=== PATIENT | female | born 2005 | race Caucasian/White ===

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

== ENCOUNTER 2024-08-17 09:54 | Emergency (ER) | payer OTHER, SELFPAY ==
--- NOTE | 2024-08-17 09:52 | ECG_ITS ---
APPROVED REPORT Exam: Resting ECG HR:62 bpm ECG Measurements Heart Rate 62 AXES CO 150 P 65 QRSd 74 QRS 74 QT 401 T 50 QTc 406 Conclusion SINUS RHYTHM WITH SINUS ARRHYTHMIA NORMAL ECG UNCONFIRMED REPORT Electronically signed by : Michael Choudhary, 08/21/2024 23:28:00
[2024-08-17 09:55] VITALS: BP 122/66; PULSE 80; RESP 20; TEMP 36.8; O2SAT 99; BMI 22.6
--- NOTE | 2024-08-17 10:06 | XR_ITS ---
FINAL REPORT CLINICAL HISTORY: Shortness of breath, Lt sided chest pain COMPARISON: None FINDINGS: The heart size is normal. The mediastinum is normal. There is no focal infiltrate or edema. There are no pleural effusions. There is no pneumothorax. There is mild thoracic scoliosis convex to the right. IMPRESSION: No acute cardiopulmonary process Reviewed, Interpreted and Dictated by Chuck Artis MD Transcribed by Chelsie Mathias Authenticated and [facility] [place]
[2024-08-17] MEDS: hydrOXYzine pamoate 25MG CAPSULE 25 MG PO (10:08)
[2024-08-17 10:15] LABS: Albumin Level 5.1 g/dl (3.5-5.0); Chloride 103 mmol/L (98-107); Potassium 3.4 mmoL/L (3.5-5.1); Sodium 142 mmol/L (136-145)
[2024-08-17 10:18] LABS: Alanine Aminotransferase 22 U/L (12-78); Albumin/Globulin Ratio 1.4 (1.1-1.8); Alkaline Phosphatase 74 U/L (38-126); Anion Gap 17.4 mEq/L (5-15); Aspartate Amino Transferase 32 U/L (14-36); Bilirubin,Total 0.4 mg/dl (0.2-1.3); Blood Urea Nitrogen 6 mg/dl (7-17); Calcium 9.4 mg/dl (8.4-10.2); Carbon Dioxide 25 mmol/L (22.0-30.0); Creatinine Clearance Estimated 110 mL/min (50-200); Estimated Glomerular Filt Rate 107 ml/min (>60); GFR (African American) 129 ML/MIN (>60); Globulin 3.6 g/dL (1.3-3.2); Glucose 106 mg/dl (74-100); Total Protein,Serum 8.7 g/dl (6.3-8.2)
[2024-08-17 10:22] LABS: Basophils # 0.1 K/mm3 (0-0.2); Basophils % 0.6 % (0.1-2.0); Eosinophils # 0.5 K/mm3 (0.0-0.4); Eosinophils % 5.3 % (0.1-12.0); Hematocrit 40.8 % (37.0-47.0); Hemoglobin 13.3 g/dL (12.2-16.2); Lymphocytes # 3.9 K/mm3 (0.7-4.5); Mean Corpuscular HGB Conc 32.6 g/dL (31.8-35.4); Mean Corpuscular Hemoglobin 27.1 pg (27.0-31.2); Mean Corpuscular Volume 83.3 fl (81-99); Mean Platelet Volume 9.2 fl (7.4-10.4); Monocytes # 0.5 K/mm3 (0.1-1.0); Monocytes % 5.9 % (1.7-9.3); Neutrophils # 3.8 K/mm3 (1.8-7.8); Platelet Count 361 K/mm3 (142-424); Red Cell Distribution Width 12.8 % (11.5-17.5); White Blood Count 8.8 K/mm3 (4.5-13.0)
[2024-08-17 10:30] VITALS: BP 101/57; PULSE 67; O2SAT 100
[2024-08-17 10:35] LABS: Troponin I < 0.01 ng/ml (0.00-0.034)
[2024-08-17 10:49] LABS: Thyroid Stimulating Hormone 4.22 uIU/mL (0.465-4.68)
[2024-08-17 11:00] VITALS: BP 96/60; PULSE 57; O2SAT 100
[2024-08-17 11:11] LABS: HCG Qualitative, Serum Negative (Negative)
--- NOTE | 2024-08-17 11:20 | ED_ITS ---
Discharge Plan Disposition Patient Disposition: Home, Self-Care Prescriptions Prescriptions: New hydroxyzine pamoate [Vistaril] 25 mg capsule 25 mg PO Q8H PRN (Reason: anxiety) 7 Days Qty: 21 0RF No Action ondansetron 4 mg tablet,disintegrating 4 mg PO Q8H PRN (Reason: nausea and vomiting) Qty: 20 0RF Referrals Follow up/Referrals: Ryan Blackman MD [Staff Physician] - See instructions Activity Restrictions/Add. Instructions Additional Instructions/Restrictions: Your symptoms are most consistent with anxiety and stress however given the fact that you are having palpitations I would recommend you follow-up with cardiology to get an outpatient Holter monitor as discussed. Otherwise no evidence of emergent medical condition identified today. Clinical Impressions Clinical Impression: Atypical chest pain, Palpitations, Anxiety Print Language Print Language: Kiswahili Discharge ED Provider: Emily Choudhary General Adult HPI General Chief complaint: Anxiety Stated complaint: chest pain Time Seen by Provider: 08/17/24 09:57 Mode of Arrival: Ambulatory Source of Information: Patient Limitations: No Limitations Description of Symptoms (Recalled from ER Triage Doc. by RN): pt states she has adhd and anxiety but hasnt been on any meds in awhile and has missed her last few appts with [facility] nurse prac. pt states she started having sharp pains and then thinking about it makes it get worse History of Present Illness HPI narrative: 19-year-old female presents today with palpitations and atypical chest pain. States has been ongoing for several weeks. Has a history of anxiety but no worsening anxiety than normal today chest pain is nonexertional no dyspnea or diaphoresis associated with it. She states she does get very anxious in the middle of these episodes. No other symptoms such as nausea vomiting diarrhea etc. Related Data Previous Rx's ?Medication ?Instructions ?Recorded ondansetron 4 mg disintegrating 4 mg PO Q8H PRN nausea and 04/25/24 tablet vomiting #20 tabs hydroxyzine pamoate 25 mg capsule 25 mg PO Q8H PRN anxiety 7 days 08/17/24 (Vistaril) #21 caps Allergies Allergy/AdvReac Type Severity Reaction Status Date / Time No Known Allergies Allergy Verified 04/25/24 13:38 [facility] Disclaimer: The information contained in this section may have been updated after the patient was seen, as this information can be updated by other users. Medical History Major depressive disorder Generalized anxiety disorder Social History Smoking Status: Never smoker alcohol intake: never substance use type: denies use current occupational status: student and other Travel in the last 8 weeks: None number of children: 0 Have you lived/traveled outside [place] in past 30 days?: No Contact w/someone who lives/traveled outside US past 30 days?: No Exposure to someone with infectious disease in past 14 days?: No Do you have a fever (greater than 100.4 F or 38 C)?: No Have you tested positive for COVID-19: No Exposed to someone with COVID-19 in past 14 days?: No Do you have a sore throat?: No Do you have a cough?: No Do you have any weakness?: No Do you have any diarrhea?: No Are you experiencing any unusual bleeding?: No Do you have any muscle aches/pain?: No Do you have any abdominal pain?: No Are you experiencing loss of taste or smell?: No Other Medical History Have you received the Flu Vaccine for this season: No Have you received the Pneumonia Vaccine: No ROS Obtained: Yes All systems reviewed & no additional complaints except as documented Physical Exam General General appearance: alert and in no apparent distress Respiratory Respiratory exam: Present normal lung sounds bilaterally Cardiovascular Cardiovascular exam: Present regular rate Neurological Exam Neurological exam: Present alert and oriented X3 Medical Decision Making Medical Records Screening: Per USPSTF and CDC recommendations, given the prevalence of disease in our region, it is our hospital?s policy to screen for HIV and viral Hepatitis for all patients aged 18 and over and those with ongoing risk factors. Praveen Inquiry Pt receiving controlled substance: No Vital Signs: 08/17/24 09:55 08/17/24 10:30 08/17/24 11:00 Temperature 98.2 F Temperature Source Oral Pulse Rate 67 57 L Pulse Rate [Left Radial] 80 Respiratory Rate 20 Blood Pressure 101/57 L 96/60 L Blood Pressure [Right Arm] 122/66 Blood Pressure Mean [Right Arm] 84 02 Sat by Pulse Oximetry 99 100 100 Oxygen Delivery Method Room Air Room Air Room Air Lab Data Lab results reviewed: Yes I reviewed the patient's lab results. Lab Results 08/17/24 09:50: WBC 8.8, RBC 4.90, Hgb 13.3, Hct 40.8, MCV 83.3, MCH 27.1, MCHC 32.6, RDW 12.8, Plt Count 361, MPV 9.2, Neut % (Auto) 43.0, Lymph % (Auto) 45.0, [place] % (Auto) 5.9, Eos % (Auto) 5.3, Baso % (Auto) 0.6, Neut # (Auto) 3.8, Lymph # (Auto) 3.9, Morrison # (Auto) 0.5, Eos # (Auto) 0.5 H, Baso # (Auto) 0.1, Sodium 142, Potassium 3.4 L, Chloride 103, Carbon Dioxide 25, Anion Gap 17.4 H, BUN 6 L , Creatinine 0.70, Estimated Creat Clear 110, Estimated GFR 107, Est GFR ( Amer) 129, Glucose 106 H, Calcium 9.4, Total Bilirubin 0.4, AST 32, ALT 22, Alkaline Phosphatase 74, Troponin I < 0.01, Total Protein 8.7 H, Albumin 5.1 H, Globulin 3.6 H, Albumin/Globulin Ratio 1.4, TSH 4.22, Serum HCG, Qual Negative 08/17/24 09:50 08/17/24 09:50 Orders (Tests/Meds): ED MEDICATIONS Discontinued Medications Generic Name Dose Route Start Last Admin Trade Name Freq PRN Reason Stop Dose Admin Hydroxyzine Pamoate 25 mg 08/17/24 10:04 08/17/24 10:08 Hydroxyzine Pamoate 25mg Capsule PO 08/17/24 10:05 25 mg ONCE ONE Administration ORDERS Category Date Time Status CXR --portable [XR chest portable] Stat Exams 08/17/24 10:06 Taken CBC w/Auto Diff [Complete Blood Count Auto Diff] Stat Lab 08/17/24 09:50 Completed CMP [Comprehensive Metabolic Panel] Stat Lab 08/17/24 09:50 Completed HCG Qualitative, Serum Stat Lab 08/17/24 09:50 Completed TSH [Thyroid Stimulating Hormone] Stat Lab 08/17/24 09:50 Completed Trop I [Troponin I] Stat Lab 08/17/24 09:50 Completed Troponin I Q3H Lab 08/17/24 13:15 Ordered Troponin I Q3H Lab 08/17/24 16:15 Ordered Medical Decision Narrative: EKG performed I personally interpreted shows a ventricular rate of 62 normal axis no evidence of acute ischemia no conduction abnormalities etc. Labs unremarkable. Patient does have some palpitations and atypical chest pain is not consistent with acute coronary syndrome etc. most likely associated with anxiety. Will refer her to cardiology for an outpatient Holter monitor. Reassessment 11:32 AM patient feeling much better labs unremarkable chest x-ray performed I personally interpreted which shows no evidence of acute cardiopulmonary emergency. Most likely this is secondary to anxiety and stress however given her palpitations we will have her follow-up outpatient for Holter monitor. Patient reassured serial assessments are benign patient was discharged in stable improved condition. Critical Care Critical Care Time Critical Care Time: No
--- NOTE | 2024-08-17 11:30 | PC.NURSE ---
DR PEARSON AT BEDSIDE TO REEVALUATE PT
[2024-08-17 11:38] VITALS: BP 104/69; PULSE 61; RESP 20; TEMP 36.8; O2SAT 98
== END 2024-08-17 11:42 | disposition home or self-care (01) ==
PROVIDERS: Emergency Provider Student in an Organized Health Care Education/Training Program; PCP Nurse Practitioner Family
DX: R00.2 Palpitations (principal); R07.89 Other chest pain; F41.9 Anxiety disorder, unspecified
CPT/HCPCS: 71045; 80053; 84443; 84484; 84703; 85025; 93005; 99284

== ENCOUNTER 2024-09-08 14:31 | Outpatient (CLI) | payer OTHER, SELFPAY ==
--- NOTE | 2024-09-08 14:35 | XR_ITS ---
FINAL REPORT CLINICAL HISTORY: lower abd pain, constipation FINDINGS: Flat and upright views of the abdomen were obtained. No prior exam is available for comparison. Bowel gas pattern is unremarkable. There is moderate stool in the proximal colon. No free intraperitoneal air. There are no abnormal calcifications. No acute osseous abnormality. IMPRESSION: Moderate stool burden without acute intra-abdominal abnormality. Reviewed, Interpreted and Dictated by Lauren Pacheco MD Transcribed by Darby Gatica Authenticated and [facility]
== END 2024-09-08 23:59 | disposition home or self-care (01) ==
LOC: RAD 14:32
PROVIDERS: PCP Nurse Practitioner Family; Visit Provider Nurse Practitioner Family
DX: R10.30 Lower abdominal pain, unspecified (principal)
CPT/HCPCS: 74019

== ENCOUNTER 2024-09-12 14:15 | Outpatient (CLI) | payer OTHER, SELFPAY ==
[2024-09-12 15:34] LABS: Free T4 (Free Thyroxine) 0.98 ng/dl (0.78-2.19)
[2024-09-12 15:49] LABS: Thyroid Stimulating Hormone 0.86 uIU/mL (0.465-4.68)
== END 2024-09-12 23:59 | disposition home or self-care (01) ==
LOC: RT 14:16
PROVIDERS: PCP Nurse Practitioner Family; Visit Provider Nurse Practitioner
DX: R00.2 Palpitations (principal); R07.89 Other chest pain
CPT/HCPCS: 36415; 84439; 84443; 93270

== ENCOUNTER 2024-10-09 09:59 | Outpatient (CLI) | payer OTHER, SELFPAY ==
--- NOTE | 2024-10-09 10:02 | CA_ITS ---
APPROVED REPORT EXAM: Comprehensive 2D, Doppler, and color-flow Echocardiogram Professor Of Economics: Tatiana Lambert RT(R) Ht: 5 ft 1 in Wt: 143lbs BSA: 1.64 BP: 101/51 mmHg Indications: SOB, CP, palpitations, family history of HD 2D Dimensions LVEF (Kitchen's) 65.30 % F: 54 - 74 LV Volume 104.30 mL F: 46 - 106 LV Volume Index 63.6 mL/m2 F: 29 - 61 LA Volume 23.50 mL LA Volume Index 14.33 mL/m2 (M/F) 16-34 EF AP4 61.60 % EF AP2 68.5 % EF BP 65.3 % GL Strain -24.0 % M-Mode Dimensions RVDd 2.66 cm (0.9-2.6) LA Diam 2.10 cm (1.9-4.0) LVDd 4.19 cm (3.5-5.7) LVDs 3.09 cm (3.5-5.7) IVSd 0.72 cm (0.6-1.1) PWd 0.72 cm (0.6-1.1) EF (Teich) 51.90% FS 26.30% EDV (Teich) 78.10 mL ESV (Teich) 37.60 mL LV Diastology E Decel Time 200 (160-240 msec) E/A Ratio 1.9 Mitral Valve MV E Max Obi. 121.0 (40-130 cm/s) MV A Velocity 64.0 (40-130 cm/s) E/A Ratio 1.88 MV PHT 59.0 ms Tricuspid Valve TR P. Velocity 215.00 cm/s RAP Estimate 10.00 mmHg RVSP 28.50 mmHg Left Ventricle The left ventricle is normal size. The left ventricular systolic function is normal. The left ventricular ejection fraction is within the normal range. There is normal left ventricular wall thickness. There is normal LV segmental wall motion. The left ventricular diastolic function is normal. LVEF is 55%. Right Ventricle The right ventricle is normal size. The right ventricular systolic function is normal. Atria The left atrium size is normal. The right atrium size is normal. There is no Doppler evidence of interatrial shunt. Aortic Valve Aortic valve opens well. There is no aortic valvular stenosis. No aortic regurgitation is present. Mitral Valve The mitral valve is normal in structure. No evidence of mitral valve stenosis. Trace mitral regurgitation. Tricuspid Valve Tricuspid valve is grossly normal in structure and function. Trace tricuspid regurgitation. There is insufficient TR jet to estimate RVSP. Pulmonic Valve The pulmonary valve is normal in structure. Trace pulmonic regurgitation. Great Vessels The aortic root is normal in size. IVC is normal in size and collapses >50% with inspiration. Pericardium There is no pericardial effusion. Other Information Study Quality: Adequate Conclusion Normal biventricular systolic function. No significant valvular stenosis or regurgitation. Electronically signed by : Agatha Suárez MD 10/17/2024 15:27:15
== END 2024-10-09 23:59 | disposition home or self-care (01) ==
LOC: RT 10:00
PROVIDERS: PCP Nurse Practitioner Family; Visit Provider Nurse Practitioner
DX: R00.2 Palpitations (principal); R07.89 Other chest pain
CPT/HCPCS: 93306

== ENCOUNTER 2024-10-17 23:09 | Emergency (ER) | payer OTHER, SELFPAY ==
[2024-10-17 23:33] VITALS: BP 110/49; PULSE 55; RESP 16; TEMP 36.4; O2SAT 99; BMI 26.6
--- NOTE | 2024-10-18 00:07 | ED_ITS ---
Discharge Plan Disposition Patient Disposition: Home, Self-Care Prescriptions Prescriptions: No Action potassium chloride 10 mEq tablet,ER particles/crystals 10 meq PO DAILY Qty: 30 0RF hydroxyzine pamoate [Vistaril] 25 mg capsule 25 mg PO Q8H PRN (Reason: anxiety) 30 Days Qty: 90 0RF polyethylene glycol 3350 [Miralax] 17 gram/dose powder 17 g PO DAILY Qty: 510 0RF propranolol 20 mg tablet 20 mg PO BID Qty: 60 2RF Referrals Follow up/Referrals: Mer Garvey APRN [Primary Care Provider] - See instructions Activity Restrictions/Add. Instructions Additional Instructions/Restrictions: Please take zofran as needed for nausea. Please take tylenol pepto/tums as ne eded for pain. Consider starting pepcid and following up with PCP if symptoms persist. If you develop persistent right sided upper abdominal pain or signs of infection consider returning to the ER. Clinical Impressions Clinical Impression: Nausea, Abdominal pain Print Language Print Language: [place] Discharge ED Provider: Brijesh Correa General Adult HPI General Chief complaint: PAIN Stated complaint: pain R rib, nausea, vision problems, excess gas Time Seen by Provider: 10/18/24 00:07 Mode of Arrival: Ambulatory Source of Information: Patient and Parent(s) Description of Symptoms (Recalled from ER Triage Doc. by RN): C/o abd pain, nausea with no vomiting, reports diarrhea x 2days. excessiving burping. Reports vision making her head feel funny. History of Present Illness HPI narrative: 19-year-old female without significant past medical history presents for some epigastric discomfort, nausea without vomiting, now having a little bit of diarrhea. No reported fever at home. She has anxiety. Recently evaluated by cardiology for chest pain with a negative workup. Reports she is currently on day 2 of her menstrual period. Denies any alcohol or tobacco use, denies any concern for . No focal right upper quadrant pain. No current chest pain shortness of breath. Reports that her vision was transiently funny for less than a minute after she woke up, has otherwise been fine. Patient denies any urinary symptoms or flank pain. Related Data Previous Rx's ?Medication ?Instructions ?Recorded hydroxyzine pamoate 25 mg capsule 25 mg PO Q8H PRN anxiety 30 days 08/25/24 (Vistaril) #90 caps potassium chloride 10 mEq 10 meq PO DAILY #30 tabs 08/25/24 tablet,extended release(part/cryst) polyethylene glycol 3350 17 17 g PO DAILY #510 grams 09/08/24 gram/dose oral powder (Miralax) propranolol 20 mg tablet 20 mg PO BID #60 tabs 10/17/24 Allergies Allergy/AdvReac Type Severity Reaction Status Date / Time No Known Allergies Allergy Verified 10/17/24 15:15 [facility] Disclaimer: The information contained in this section may have been updated after the patient was seen, as this information can be updated by other users. Medical History ADHD (attention deficit hyperactivity disorder) Depression Major depressive disorder Generalized anxiety disorder Surgical History History of dental surgery Social History Smoking Status: Unknown if ever smoked alcohol intake: never substance use type: denies use current occupational status: unemployed and other Travel in the last 8 weeks: None number of children: 0 Other Medical History Have you received the Flu Vaccine for this season: No Have you received the Pneumonia Vaccine: No ROS Obtained: Yes All systems reviewed & no additional complaints except as documented Physical Exam General General appearance: alert and in no apparent distress Head Head exam: atraumatic and normocephalic Eye Eye exam: Present normal appearance, PERRL and EOMI ENT ENT exam: Present normal oropharynx and normal external ear exam Neck Neck exam: Present normal inspection and full ROM Chest Chest inspection: Present normal inspection and symmetric chest wall rise; Absent tenderness Respiratory Respiratory exam: Present normal lung sounds bilaterally; Absent respiratory distress Cardiovascular Cardiovascular exam: Present regular rate and normal rhythm Abdominal Exam Abdominal exam: Present soft; Absent distention, tenderness or guarding Extremities Exam Extremities exam: Present normal inspection; Absent edema or joint swelling Back Exam Back exam: Present normal inspection; Absent tenderness Neurological Exam Neurological exam: Present alert and oriented X3; Absent motor sensory deficit Psychiatric Psychiatric exam: Present normal affect and normal mood Skin Skin exam: Present warm, dry and normal color Lymphatic Lymphatic Findings: no adenopathy Medical Decision Making Medical Records Medical records reviewed: Yes I reviewed the patient's medical records. Screening: Per USPSTF and CDC recommendations, given the prevalence of disease in our region, it is our hospital?s policy to screen for HIV and viral Hepatitis for all patients aged 18 and over and those with ongoing risk factors. Praveen Inquiry Pt receiving controlled substance: No Praveen was queried for this patient: No Vital Signs: 10/17/24 23:33 10/18/24 00:47 Temperature 97.5 F L 97.5 F L Temperature Source Oral Oral Pulse Rate 64 Pulse Rate [Right Brachial] 55 L Respiratory Rate 16 18 Blood Pressure 98/78 L Blood Pressure [Right Arm] 110/49 L Blood Pressure Mean [Right Arm] 69 Blood Pressure Source Automatic Cuff Blood Pressure Source [Right Arm] Automatic Cuff Blood Pressure Position Sitting Blood Pressure Position [Right Arm] Standing 02 Sat by Pulse Oximetry 99 Oxygen Delivery Method Room Air Room Air Lab Data Lab results reviewed: Yes I reviewed the patient's lab results. Orders (Tests/Meds): ED MEDICATIONS Discontinued Medications Generic Name Dose Route Start Last Admin Trade Name Freq PRN Reason Stop Dose Admin Belladonna Alkaloids 60 ml 10/18/24 00:26 10/18/24 00:30 Belladonna Alkaloids 60 Ml Ml PO 10/18/24 00:27 60 ml ONCE ONE Administration Ondansetron HCl 4 mg 10/18/24 00:26 10/18/24 00:31 Ondansetron 4mg Odt SL 10/18/24 00:27 4 mg ONCE ONE Administration Medical Decision Narrative: 19-year-old female without significant past medical history presents for intermittent epigastric discomfort and some diarrhea.. History was obtained via interactive discussion with patient. On arrival, patient is [afebrile, hemodynamically stable, satting appropriately, alert, oriented x4, GCS 15], moving all extremities spontaneously. Full physical exam performed and significant for benign abdominal exam without tenderness Differential includes but is not limited to gastroenteritis, gastritis, GERD, pancreatitis, cholecystitis. Patient was given GI cocktail and Zofran for symptomatic management and correction of underlying abnormalities. Blood work, CT imaging, urinalysis was considered, but deemed unnecessary due to benign exam, history consistent with gastroenteritis.. Given patient history, exam and workup, patient's presentation most likely represents gastroenteritis. Patient was discharged with prescription for Zofran and encouraged to use [id number] antacid medications as needed. Patient encouraged follow-up PCP if symptoms worsen or do not improve over the next few days.. Procedures Risk/Benefits of Procedure(s) Were Explained: Yes Critical Care Critical Care Time Critical Care Time: No
[2024-10-18] MEDS: BELLADONNA ALKALOIDS 60 ML ML PO (00:30)
[2024-10-18] MEDS: ONDANSETRON 4MG ODT 4 MG SL (00:31)
[2024-10-18 00:47] VITALS: BP 98/78; PULSE 64; RESP 18; TEMP 36.4; O2SAT 97
== END 2024-10-18 00:50 | disposition home or self-care (01) ==
PROVIDERS: Emergency Provider Emergency Medicine; PCP Nurse Practitioner Family
DX: R11.0 Nausea (principal); R10.9 Unspecified abdominal pain
CPT/HCPCS: 99283; Q0162

== ENCOUNTER 2024-10-25 10:33 | Outpatient (CLI) | payer OTHER, SELFPAY ==
--- NOTE | 2024-10-25 10:38 | XR_ITS ---
FINAL REPORT CLINICAL HISTORY: abd pain, constipation FINDINGS: TWO-VIEW ABDOMEN Flat and upright views of the abdomen were obtained. There is mild fecal impaction in the left and sigmoid colon. There is no evidence of obstruction. There is no free air. There is no abnormal calcification. IMPRESSION: Mild distal colonic fecal impaction. Reviewed, Interpreted and Dictated by Peace Valenzuela MD Transcribed by Jocelyn More Authenticated and [facility]
== END 2024-10-25 23:59 | disposition home or self-care (01) ==
LOC: RAD 10:35
PROVIDERS: PCP Nurse Practitioner Family; Visit Provider Nurse Practitioner Family
DX: K59.00 Constipation, unspecified (principal); R10.9 Unspecified abdominal pain
CPT/HCPCS: 74019

== ENCOUNTER 2024-10-30 07:34 | Outpatient (CLI) | payer OTHER, SELFPAY ==
--- NOTE | 2024-10-30 07:30 | US_ITS ---
FINAL REPORT CLINICAL HISTORY: Nausea, upper abd pain COMPARISON: None FINDINGS: Sonographic images of the right upper quadrant were obtained. The pancreas is within normal limits.The liver has an unremarkable appearance.The gallbladder appears normal without evidence of gallstones.There is no evidence of biliary ductal dilatation.The common duct measures 2 mm. Limited images of the right kidney are unremarkable. IMPRESSION: Unremarkable right upper quadrant ultrasound. Reviewed, Interpreted and Dictated by Chuck Artis MD Transcribed by Chelsie Mathias Authenticated and [facility]
== END 2024-10-30 23:59 | disposition home or self-care (01) ==
LOC: RAD 07:34
PROVIDERS: PCP Nurse Practitioner Family; Visit Provider Nurse Practitioner Family
DX: R11.0 Nausea (principal); R06.00 Dyspnea, unspecified; R10.11 Right upper quadrant pain
CPT/HCPCS: 76705

== ENCOUNTER 2024-12-15 17:08 | Outpatient (CLI) | payer OTHER, SELFPAY ==
--- NOTE | 2024-12-15 17:15 | MR_ITS ---
PROCEDURE INFORMATION: Exam: MR Head Without Contrast Exam date and time: 12/15/2024 5:13 PM Age: 19 years old Clinical indication: Dizziness; Additional info: Headaches, dizziness TECHNIQUE: Imaging protocol: Magnetic resonance imaging of the head without contrast. COMPARISON: No relevant prior studies available. FINDINGS: Brain: Normal. No acute infarct. No hemorrhage. No significant white matter disease. No edema. Cerebral ventricles: Normal. No ventriculomegaly. Bones: Unremarkable. Paranasal sinuses: Trace secretions in the ethmoid air cells. Mastoid air cells: Normal as visualized. No mastoid effusion. Orbital cavities: Unremarkable. Soft tissues: Unremarkable. IMPRESSION: No acute intracranial findings.
== END 2024-12-15 23:59 | disposition home or self-care (01) ==
LOC: RAD 17:09
PROVIDERS: PCP Nurse Practitioner Family; Visit Provider Nurse Practitioner Family
DX: R42 Dizziness and giddiness (principal); R51.9 Headache, unspecified; G89.29 Other chronic pain
CPT/HCPCS: 70551